=== PATIENT | female | born 1995 | race Caucasian/White ===

== ENCOUNTER 2021-06-08 15:27 | Emergency (ER) | payer SELFPAY ==
[~2021-06-08] VITALS: Ht 157.5 cm; Wt 65.9 kg
[2021-06-08 15:46] VITALS: BP 134/76
== END 2021-06-08 16:19 | disposition left against medical advice (07) ==
LOC: ER 15:28
DX: F41.9 Anxiety disorder, unspecified (principal)
CPT/HCPCS: 99281